=== PATIENT | female | born 1940 | race Caucasian/White ===

== ENCOUNTER 2020-04-10 09:15 | Observation (INO) ==
[2020-04-10] MEDS ORDERED: HYDROcodone/ACETAMIN 5/325 mg TAB PO ONE ×2 (09:58→15:22)
[2020-04-10] MEDS ORDERED: cefTRIAXone 1 gm/50 mL NS BAG 1 GM/50 ML BAG IV ONE (09:59)
[2020-04-10 10:44] LABS: ABS Eosinophils 0.1 10^3/ul (0-0.6); ABS Monocytes 0.6 10^3/ul (0-0.8); ABS Neutrophils 6.1 10^3/ul (1.5-7.7); Hematocrit 40 % (35-47); Hemoglobin 13.7 g/dL (12.0-16.0); Lymphocyte % 12.5 %; Mean Corpuscular HGB Conc 34 g/dL (31-36); Mean Corpuscular Hemoglobin 29 pg (27-31); Mean Corpuscular Volume 86 fL (80-97); Platelet Count 100 10^3/uL (150-450); Red Blood Count 4.66 10^6 /uL (3.70-4.87); Red Cell Distribution Width 17 % (10-15); White Blood Count 7.8 10^3/uL (3.5-10.8)
[2020-04-10 10:53] LABS: Activated Partial Thrombo Time 29.2 seconds (26.0-38.0); INR 1.11 (0.82-1.09)
[2020-04-10 11:16] LABS: Albumin 4.3 g/dL (3.2-5.2); Albumin/Globulin Ratio 1.3 (1-3); BUN/Creatinine Ratio 23.9 (8-20); C Reactive Protein 18.53 mg/L (<8.01); Calcium 9.7 mg/dL (8.6-10.3); EGFR African American 95.8 (>60); EGFR Non-African American 79.2 (>60); Globulin 3.4 g/dL (2-4); Total Bilirubin 1.5 mg/dL (0.2-1.0); Total Protein 7.7 g/dL (6.4-8.9)
[2020-04-10] MEDS ORDERED: Iodixanol (CONTRAST) 320 MG/ML 100 ML SDV IV ONE (11:40)
[2020-04-10 12:15] LABS: Urine Appearance Clear; Urine Bilirubin Negative (Negative); Urine Blood Negative (Negative); Urine Color Yellow; Urine Glucose 3+(>=500 mg/dL) (Negative); Urine Ketones 1+ (Negative); Urine Nitrite Negative (Negative); Urine Protein Negative (Negative); Urine Specific Gravity 1.029 (1.010-1.030); Urine Urobilinogen Negative (Negative)
[2020-04-10 12:17] LABS: Urine Bacteria Absent (Absent); Urine Red Blood Cell 3+(>10/hpf) (Absent); Urine Squamous Epithelial Cell Present (Absent); Urine White Blood Cell 3+(>20/hpf) (Absent)
[2020-04-10] MEDS ORDERED: Ciprofloxacin 400mg IVPREMIX 400 MG/200 ML BAG IVPB ONE (13:41)
[2020-04-10] MEDS ORDERED: Ondansetron 4 mg VIAL 2 MG/ML 2 ml VIAL IV PRN (15:53)
[2020-04-10] MEDS ORDERED: Dextrose 50% Syringe 50 ml 25 GM/50 ML SYRINGE IV PUSH PRN (15:58)
[2020-04-10] MEDS: HYDROcodone/ACETAMIN 5/325 mg TAB PO PRN (19:50)
[2020-04-10] MEDS: Multivitamins/Mins AREDS2 (NF) CAP PO SCH (19:59)
[2020-04-10] MEDS: CMCS:Simvastatin 10 mg TAB (NF) PO SCH (23:07)
[2020-04-11] MEDS: HYDROcodone/ACETAMIN 5/325 mg TAB PO PRN (05:34)
[2020-04-11] MEDS: Ciprofloxacin 400mg IVPREMIX 400 MG/200 ML BAG IVPB SCH ×2 (05:34→17:09)
[2020-04-11 06:37] LABS: ABS Basophils 0.1 10^3/ul (0-0.2); ABS Eosinophils 0.1 10^3/ul (0-0.6); ABS Lymphocytes 1.4 10^3/ul (1.0-4.8); ABS Monocytes 0.8 10^3/ul (0-0.8); ABS Neutrophils 6.4 10^3/ul (1.5-7.7); Eosinophil % 1.1 %; Hematocrit 36 % (35-47); Hemoglobin 12.8 g/dL (12.0-16.0); Lymphocyte % 16.1 %; Mean Corpuscular HGB Conc 35 g/dL (31-36); Mean Corpuscular Hemoglobin 30 pg (27-31); Mean Corpuscular Volume 86 fL (80-97); Mean Platelet Volume 8.1 fL (7.4-10.4); Nucleated Red Blood Cells % 0.1; Platelet Count 89 10^3/uL (150-450); Red Blood Count 4.25 10^6 /uL (3.70-4.87); Red Cell Distribution Width 17 % (10-15); White Blood Count 8.8 10^3/uL (3.5-10.8)
[2020-04-11 06:52] LABS: BUN/Creatinine Ratio 20.6 (8-20); EGFR Non-African American 90.9 (>60); Potassium 3.8 mmol/L (3.5-5.0)
[2020-04-11] MEDS: Multivitamins/Minerals TAB PO SCH (09:56)
[2020-04-11] MEDS: Cholecalciferol (VIT D3) 1,000 unit TAB PO SCH (09:56)
[2020-04-11] MEDS: Multivitamins/Mins AREDS2 (NF) CAP PO SCH ×2 (09:58→21:58)
[2020-04-11] MEDS: CMCS:Simvastatin 10 mg TAB (NF) PO SCH (21:57)
[2020-04-12 06:09] LABS: ABS Basophils 0.1 10^3/ul (0-0.2); ABS Eosinophils 0.1 10^3/ul (0-0.6); ABS Lymphocytes 1.1 10^3/ul (1.0-4.8); ABS Monocytes 0.5 10^3/ul (0-0.8); ABS Neutrophils 3.4 10^3/ul (1.5-7.7); Eosinophil % 2.2 %; Hematocrit 36 % (35-47); Hemoglobin 12.3 g/dL (12.0-16.0); Lymphocyte % 21.9 %; Mean Corpuscular HGB Conc 34 g/dL (31-36); Mean Corpuscular Hemoglobin 30 pg (27-31); Mean Corpuscular Volume 86 fL (80-97); Nucleated Red Blood Cells % 0.1; Platelet Count 82 10^3/uL (150-450); Red Blood Count 4.17 10^6 /uL (3.70-4.87); Red Cell Distribution Width 17 % (10-15); White Blood Count 5.2 10^3/uL (3.5-10.8)
[2020-04-12] MEDS: Ciprofloxacin 400mg IVPREMIX 400 MG/200 ML BAG IVPB SCH (06:15)
[2020-04-12 06:17] LABS: BUN/Creatinine Ratio 19.5 (8-20); Calcium 8.8 mg/dL (8.6-10.3); EGFR African American 87.3 (>60); EGFR Non-African American 72.1 (>60); Potassium 3.8 mmol/L (3.5-5.0)
[2020-04-12 08:16] VITALS: BP 131/58
[2020-04-12] MEDS: Multivitamins/Minerals TAB PO SCH (08:45)
[2020-04-12] MEDS: Cholecalciferol (VIT D3) 1,000 unit TAB PO SCH (08:46)
[2020-04-12] MEDS: Multivitamins/Mins AREDS2 (NF) CAP PO SCH (08:46)
== END 2020-04-12 10:55 | disposition home or self-care (01) ==
LOC: MED 09:15 → ED 09:15 → MED 16:16
PROVIDERS: ADMIT Internal Medicine; ATTEND Internal Medicine

== ENCOUNTER 2022-09-09 12:04 | Observation (INO) ==
[2022-09-09 13:21] LABS: ABS Lymphocytes 0.6 10^3/ul (1.0-4.8); ABS Monocytes 0.4 10^3/ul (0-0.8); ABS Neutrophils 3.4 10^3/ul (1.5-7.7); Eosinophil % 0.9 %; Hematocrit 32 % (35-47); Hemoglobin 10.3 g/dL (12.0-16.0); Lymphocyte % 12.5 %; Mean Corpuscular HGB Conc 33 g/dL (31-36); Mean Corpuscular Hemoglobin 28 pg (27-31); Mean Corpuscular Volume 87 fL (80-97); Mean Platelet Volume 8.2 fL (7.4-10.4); Platelet Count 73 10^3/uL (150-450); Red Blood Count 3.63 10^6 /uL (3.70-4.87); Red Cell Distribution Width 18 % (10-15); White Blood Count 4.4 10^3/uL (3.5-10.8)
[2022-09-09 13:29] LABS: INR 1.24 (0.88-1.18)
[2022-09-09] MEDS ORDERED: NS 0.9% 1000 ml BAG 1,000 ML IV ONE (13:50)
[2022-09-09 13:59] LABS: Albumin 3.8 g/dL (3.2-5.2); Albumin/Globulin Ratio 0.9 (1-3); Calcium 9.7 mg/dL (8.6-10.3); Globulin 4.1 g/dL (2-4); Potassium 4.9 mmol/L (3.5-5.0); Total Bilirubin 1.1 mg/dL (0.2-1.0); Total Protein 7.9 g/dL (6.4-8.9); eGFR CKD-EPI 17.4 (>60)
[2022-09-09] MEDS ORDERED: Dextrose 50% Syringe 50 ml 25 GM/50 ML SYRINGE IV PUSH PRN (16:52)
[2022-09-09] MEDS ORDERED: Lactulose 300 ML for PR 200 GM/300 ML BTL PR SCH (17:00)
[2022-09-09] MEDS: Lactulose 30 ml UDC PO SCH ×2 (18:00→20:29)
[2022-09-09] MEDS ORDERED: Lactulose 300 ML for PR 200 GM/300 ML BTL PR ONE (19:46)
[2022-09-09] MEDS: Heparin 5000 UNITS/ML 1 mL VIAL SUBCUT SCH (20:31)
[2022-09-09] MEDS ORDERED: LACTULOSE PO SCH (21:00)
[2022-09-10 07:37] LABS: INR 1.24 (0.88-1.18)
[2022-09-10 07:40] LABS: ABS Eosinophils 0.1 10^3/ul (0-0.6); ABS Lymphocytes 0.5 10^3/ul (1.0-4.8); ABS Monocytes 0.3 10^3/ul (0-0.8); ABS Neutrophils 2.8 10^3/ul (1.5-7.7); Eosinophil % 1.5 %; Hematocrit 29 % (35-47); Hemoglobin 9.8 g/dL (12.0-16.0); Lymphocyte % 13.8 %; Mean Corpuscular HGB Conc 34 g/dL (31-36); Mean Corpuscular Hemoglobin 29 pg (27-31); Mean Corpuscular Volume 86 fL (80-97); Nucleated Red Blood Cells % 0.1; Platelet Count 67 10^3/uL (150-450); Red Blood Count 3.34 10^6 /uL (3.70-4.87); Red Cell Distribution Width 17 % (10-15); White Blood Count 3.7 10^3/uL (3.5-10.8)
[2022-09-10 07:48] LABS: Albumin 3.6 g/dL (3.2-5.2); Albumin/Globulin Ratio 0.9 (1-3); Calcium 9.3 mg/dL (8.6-10.3); Globulin 3.8 g/dL (2-4); Potassium 4.4 mmol/L (3.5-5.0); Total Bilirubin 1.1 mg/dL (0.2-1.0); Total Protein 7.4 g/dL (6.4-8.9); eGFR CKD-EPI 20.8 (>60)
[2022-09-10] MEDS: Heparin 5000 UNITS/ML 1 mL VIAL SUBCUT SCH (08:59)
[2022-09-10] MEDS: Lactulose 30 ml UDC PO SCH (08:59)
[2022-09-10] MEDS ORDERED: Cholecalciferol (VIT D3) 1,000 unit TAB PO SCH (09:00)
[2022-09-10 14:55] VITALS: BP 128/55
== END 2022-09-10 14:47 | disposition home or self-care (01) ==
LOC: EDHOLD 12:04 → ED 12:04 → MEDTELE 16:45
PROVIDERS: ADMIT Hospitalist; ATTEND Hospitalist

== ENCOUNTER 2022-10-11 16:09 | Inpatient (IN) ==
[2022-10-11] MEDS ORDERED: Lactulose 30 ml UDC PO ONE (20:26)
[2022-10-11] MEDS ORDERED: Furosemide 20 mg/2 ml IV VIAL IV ONE (22:37)
[2022-10-11] MEDS: Enoxaparin 30 MG/0.3 ML SYR SUBCUT SCH (23:31)
[2022-10-11] MEDS: Lactulose 30 ml UDC PO SCH (23:31)
[2022-10-12] MEDS ORDERED: Dextrose 50% Syringe 50 ml 25 GM/50 ML SYRINGE IV PUSH PRN (01:05)
[2022-10-12 03:14] LABS: Urine Appearance Cloudy; Urine Bilirubin Negative (Negative); Urine Blood 1+ (Negative); Urine Color Yellow; Urine Glucose 3+(>=500 mg/dL) (Negative); Urine Ketones Negative (Negative); Urine Nitrite Negative (Negative); Urine Protein Negative (Negative); Urine Specific Gravity 1.009 (1.002-1.030); Urine Urobilinogen Negative (Negative)
[2022-10-12 03:22] LABS: Urine Bacteria 1+ (Absent); Urine Red Blood Cell 3+(>10/hpf) (Absent); Urine Squamous Epithelial Cell Present (Absent); Urine White Blood Cell 3+(>20/hpf) (Absent)
[2022-10-12] MEDS: Lactulose 30 ml UDC PO SCH ×5 (04:14→20:17)
[2022-10-12 04:35] LABS: Hematocrit 30 % (35-47); Hemoglobin 10.1 g/dL (12.0-16.0); Mean Corpuscular HGB Conc 34 g/dL (31-36); Mean Corpuscular Hemoglobin 29 pg (27-31); Mean Corpuscular Volume 85 fL (80-97); Red Blood Count 3.51 10^6 /uL (3.70-4.87); Red Cell Distribution Width 17 % (10-15); White Blood Count 5.6 10^3/uL (3.5-10.8)
[2022-10-12 04:36] LABS: ABS Eosinophils 0.1 10^3/ul (0-0.6); ABS Lymphocytes 0.9 10^3/ul (1.0-4.8); ABS Monocytes 0.6 10^3/ul (0-0.8); ABS Neutrophils 4.1 10^3/ul (1.5-7.7); Eosinophil % 0.9 %; Lymphocyte % 15.3 %
[2022-10-12 04:59] LABS: ALT 21 U/L (7-52); Albumin/Globulin Ratio 1.1 (1-3); Alkaline Phosphatase 125 U/L (35-149); Blood Urea Nitrogen 65 mg/dL (6-24); CO2 Carbon Dioxide 24 mmol/L (22-32); Calcium 9.5 mg/dL (8.6-10.3); Chloride 94 mmol/L (101-111); Creatinine, Serum 2.94 mg/dL (0.51-0.95); Globulin 3.7 g/dL (2-4); Glucose 246 mg/dL (70-100); Sodium 128 mmol/L (135-145); Total Protein 7.7 g/dL (6.4-8.9); eGFR CKD-EPI 15.4 (>60)
[2022-10-12 05:07] LABS: Anion Gap 10 mmol/L (2-11)
[2022-10-12 05:13] LABS: Total Iron Binding Capacity 398 mcg/dL (250-450); Transferrin 284 mg/dL (203-362)
[2022-10-12 05:33] LABS: Ferritin 174.1 ng/mL (11-307)
[2022-10-12 08:38] LABS: Mean Platelet Volume 8.3 fL (7.4-10.4); Platelet Count 96 10^3/uL (150-450)
[2022-10-12 08:49] LABS: Magnesium 2.5 mg/dL (1.9-2.7); Potassium Redraw 4.7 mmol/L (3.5-5.0)
[2022-10-12] MEDS: CMCS: Simvastatin 10 mg TAB (NF) PO SCH (09:44)
[2022-10-12 11:07] LABS: TSH Ultra Thyroid Stim Horm 0.21 mcIU/mL (0.34-5.60)
[2022-10-12] MEDS: cefTRIAXone 1 gm/50 mL D5W 1 GM/50 ML BAG IV SCH (11:47)
[2022-10-12] MEDS: Enoxaparin 30 MG/0.3 ML SYR SUBCUT SCH (22:17)
[2022-10-13] MEDS: Lactulose 30 ml UDC PO SCH ×6 (00:38→21:34)
[2022-10-13 06:35] LABS: ABS Eosinophils 0.1 10^3/ul (0-0.6); ABS Lymphocytes 0.8 10^3/ul (1.0-4.8); ABS Monocytes 0.4 10^3/ul (0-0.8); ABS Neutrophils 3.2 10^3/ul (1.5-7.7); Eosinophil % 1.3 %; Hematocrit 33 % (35-47); Lymphocyte % 18.6 %; Mean Corpuscular HGB Conc 34 g/dL (31-36); Mean Corpuscular Hemoglobin 29 pg (27-31); Mean Corpuscular Volume 85 fL (80-97); Mean Platelet Volume 7.9 fL (7.4-10.4); Platelet Count 85 10^3/uL (150-450); Red Blood Count 3.83 10^6 /uL (3.70-4.87); Red Cell Distribution Width 17 % (10-15); White Blood Count 4.5 10^3/uL (3.5-10.8)
[2022-10-13 06:44] LABS: Calcium 10.1 mg/dL (8.6-10.3); Creatinine, Serum 2.93 mg/dL (0.51-0.95); Magnesium 2.7 mg/dL (1.9-2.7); Potassium 4.5 mmol/L (3.5-5.0); eGFR CKD-EPI 15.5 (>60)
[2022-10-13] MEDS ORDERED: Lactulose 300 ML for PR 200 GM/300 ML BTL PR SCH (09:00)
[2022-10-13] MEDS: CMCS: Simvastatin 10 mg TAB (NF) PO SCH ×2 (10:06→12:29)
[2022-10-13] MEDS: cefTRIAXone 1 gm/50 mL D5W 1 GM/50 ML BAG IV SCH (10:10)
[2022-10-13] MEDS: Albumin Human 5% 12.5 GM/250 ML BTL IV SCH ×2 (12:32→15:12)
[2022-10-13 12:47] LABS: Urine Osmo 478 mOsm/kg (150-1150)
[2022-10-13] MEDS ORDERED: Lactulose 30 ml UDC PO ONE (13:41)
[2022-10-13] MEDS ORDERED: NS 0.9% 1000 ml BAG 1,000 ML IV SCH (14:45)
[2022-10-13] MEDS: Enoxaparin 30 MG/0.3 ML SYR SUBCUT SCH (21:34)
[2022-10-14] MEDS: Lactulose 30 ml UDC PO SCH ×3 (04:57→22:03)
[2022-10-14 06:15] LABS: ABS Eosinophils 0.1 10^3/ul (0-0.6); ABS Lymphocytes 0.6 10^3/ul (1.0-4.8); ABS Monocytes 0.4 10^3/ul (0-0.8); Eosinophil % 1.3 %; Hematocrit 29 % (35-47); Hemoglobin 9.7 g/dL (12.0-16.0); Lymphocyte % 14.8 %; Mean Corpuscular HGB Conc 34 g/dL (31-36); Mean Corpuscular Hemoglobin 29 pg (27-31); Mean Corpuscular Volume 86 fL (80-97); Mean Platelet Volume 7.8 fL (7.4-10.4); Nucleated Red Blood Cells % 0.1; Platelet Count 66 10^3/uL (150-450); Red Blood Count 3.32 10^6 /uL (3.70-4.87); Red Cell Distribution Width 17 % (10-15); White Blood Count 4.1 10^3/uL (3.5-10.8)
[2022-10-14 06:27] LABS: Calcium 9.5 mg/dL (8.6-10.3); Creatinine, Serum 2.68 mg/dL (0.51-0.95); Magnesium 2.5 mg/dL (1.9-2.7); eGFR CKD-EPI 17.2 (>60)
[2022-10-14] MEDS: CMCS: Simvastatin 10 mg TAB (NF) PO SCH (08:44)
[2022-10-14] MEDS: cefTRIAXone 1 gm/50 mL D5W 1 GM/50 ML BAG IV SCH (11:35)
[2022-10-14] MEDS: Albumin Human 5% 12.5 GM/250 ML BTL IV SCH ×2 (11:51→12:58)
[2022-10-14 15:13] LABS: Rapid COVID-19 Molecular Undetected (Undetected)
[2022-10-14] MEDS: Enoxaparin 30 MG/0.3 ML SYR SUBCUT SCH (22:03)
[2022-10-15] MEDS: Lactulose 30 ml UDC PO SCH (05:40)
[2022-10-15 07:44] LABS: ABS Eosinophils 0.1 10^3/ul (0-0.6); ABS Lymphocytes 0.5 10^3/ul (1.0-4.8); ABS Monocytes 0.4 10^3/ul (0-0.8); ABS Neutrophils 2.8 10^3/ul (1.5-7.7); Eosinophil % 1.4 %; Hematocrit 30 % (35-47); Hemoglobin 9.7 g/dL (12.0-16.0); Lymphocyte % 14.4 %; Mean Corpuscular HGB Conc 32 g/dL (31-36); Mean Corpuscular Hemoglobin 29 pg (27-31); Mean Corpuscular Volume 92 fL (80-97); Platelet Count 56 10^3/uL (150-450); Red Blood Count 3.29 10^6 /uL (3.70-4.87); Red Cell Distribution Width 18 % (10-15); White Blood Count 3.7 10^3/uL (3.5-10.8)
[2022-10-15 08:02] LABS: Calcium 9.4 mg/dL (8.6-10.3); Creatinine, Serum 2.25 mg/dL (0.51-0.95); Potassium 4.7 mmol/L (3.5-5.0); eGFR CKD-EPI 21.3 (>60)
[2022-10-15] MEDS: CMCS: Simvastatin 10 mg TAB (NF) PO SCH (08:55)
[2022-10-15] MEDS: cefTRIAXone 1 gm/50 mL D5W 1 GM/50 ML BAG IV SCH (10:59)
[2022-10-15 12:00] VITALS: BP 102/60
== END 2022-10-15 13:50 | DRG 442 ==
LOC: ED 16:09 → EDHOLD 16:09 → SUATTDRO 21:33 → MED 10-12 09:24
PROVIDERS: ADMIT Hospitalist; ATTEND Internal Medicine